=== PATIENT | female | born 1980 | race Caucasian/White ===

== ENCOUNTER 2024-01-17 08:51 | Emergency (ER) | payer OTHER, SELFPAY ==
[2024-01-17 08:55] VITALS: BP 140/93
--- NOTE | 2024-01-17 09:48 | ED.GENMED ---
History of Present Illness
General
Chief Complaint: Ear Problem
Time Seen by Provider: 01/17/24 09:18
History of Present Illness
History of Present Illness:
43-year-old female without significant past medical history presenting to the emergency department for persistent right ear pain. Patient reports for the past month she has been having right ear pain, was placed on Levaquin by her primary care
doctor. She then had some dental work, on clindamycin, however never ended up taking the clindamycin. She went back on Levaquin and just finished the antibiotic yesterday. She notes persistent right ear discomfort, now radiating to the back of
her ear, neck, and up to her eye. Denies fever. Denies visual changes or auditory changes. Denies any drainage from the ear. Denies additional acute medical complaints.
Past History
Past History
ED Past Medical History: Other (Hypertension, hysterectomy)
Social History
Tobacco: Non-smoker
Alcohol: None
Family History
Family History: Other (Hypertension, diabetes, kidney cancer)
Phy Exam
Physical Exam
Physical Exam:
General: Well-appearing, no clinical signs of dehydration, nontoxic and in no acute distress
HEENT: protecting airway, mild fluid behind the right TM. No significant erythema to the canal. Generalized tenderness to the right ear and mild tenderness to the right tragus and mastoid. No inflammation. Pupils equal and reactive bilaterally,
extraocular movements intact.
Neck: appears supple
CV: Normal heart rate
Resp: No accessory muscle use, no increased work of breathing
Abd: Soft and non-distended, no tenderness to palpation, normal bowel sounds
Extremities: No deformities, no swelling
Neuro: alert, no focal neurologic deficit
: deferred
Rectal: deferred
Psych: Normal affect
Skin: Intact
Course
Orders/Labs/Results
Orders:
Orders
01/17/24 09:36
CT Temporal-iac W/ Iv Contrast Urgent
Comment:
Reason For Exam: recurrent R-ear pain, R-mastoid pain
01/17/24 10:05
Complete Blood Count/With Diff Urgent
Comprehensive Metabolic Panel Urgent
01/17/24 10:40
CT Head W/o Iv Contrast Urgent
Comment:
Reason For Exam: foggiesss, right head pain
Abnormal Lab Results
01/17/24
10:05
Alkaline Phosphatase 37 L U/L
(38-126)
01/17/24 10:05
01/17/24 10:05
Vital Signs
Initial and Last Documented VS:
Initial Vital Signs
Temp Pulse Resp BP Pulse Ox
99.3 F 78 18 140/93 100
01/17/24 08:55 01/17/24 08:55 01/17/24 08:55 01/17/24 08:55 01/17/24 08:55
Last Documented Vital Signs
Temp Pulse Resp BP Pulse Ox
99.3 F 107 16 133/78 100
01/17/24 08:55 01/17/24 09:52 01/17/24 09:52 01/17/24 09:52 01/17/24 09:52
MDM/Problems Addressed
MDM/Problems Addressed:
43-year-old female presenting for persistent right ear discomfort. Vital signs are normal.
On exam patient is well-appearing, nontoxic. Examination of the right ear, no significant signs of infection to the right ear, mild amount of fluid, however does have discomfort to the external ear and mastoid. Given more than a month of symptoms
with now external discomfort, mastoiditis is a consideration. For this reason will obtain laboratory analysis and CT imaging.
12:00-patient CT is negative for acute process. Given persistence of symptoms, will start patient on an eardrop. Patient is also requesting an oral antibiotic, feel low utility, however given persistent symptoms, agreeable to trying given that
Levaquin is not first choice of antibiotic for this type of infection. Will start patient on cefdinir. Advised continued outpatient follow-up. Return precautions discussed and patient verbalized understanding
*Critical Care Note
Total Time (30-74mins, 75-104mins- exclusive of procedures): Not Applicable
ED Attending Note
-
Portions of this chart may have been created with voice recognition software.� Occasional wrong word or��sound alike� substitutions may have occurred due to the inherent limitations of voice recognition software.
Discharge Plan
Departure
Prescriptions:
No Action
amlodipine 2.5 MG tablet
2.5 mg PO DAILY
dextroamphetamine-amphetamine [Adderall XR] 30 MG capsule,extended release 24hr
30 mg PO Daily
tramadol 50 MG tablet
50 mg PO Q6HPRN PRN (Reason: headache) Qty: 10 0RF
Referrals:
Lida Viera DO [Family Provider] -
Interventions
Interventions:
*Risk Screen - Suicide Last Done: 01/17/24 08:55
*General Assessment Last Done: 01/17/24 08:55
*Neglect/Abuse Screening Last Done: 01/17/24 08:55
ED- Fall Risk Assessment Last Done: 01/17/24 09:51
*ED COVID-19 Vaccine History Last Done: 01/17/24 08:55
Discharge Date and Time
Print Language: YAKUT
[2024-01-17 09:51] VITALS: BMI 28.2
[2024-01-17 09:52] VITALS: BP 133/78
[2024-01-17 10:16] LABS: % Basophils 0.7 % (0-2); % Eosinophils 0.1 % (0-6); % Immature Granulocytes 0.3 % (0-0.5); % Lymphocytes 28.1 % (20.5-51.1); % Monocytes 4.8 % (1.7-9.3); Absolute Basophils 0.1 10^3/uL (0-0.2); Absolute Monocytes 0.3 10^3/uL (0.1-0.6); Absolute Neutrophils 4.7 10^3/uL (1.4-6.5); Hematocrit 40.9 % (37.0-47.0); Hemoglobin 14.6 g/dL (12.0-16.0); Mean Corp Hgb Conc. 35.7 g/dL (33.0-37.0); Mean Corpuscular Hgb 30.1 pg (27.0-31.0); Mean Corpuscular Volume 84.3 fL (81.0-99.0); Mean Platelet Volume 9.6 fL (7.4-10.4); Nucleated Red Blood Cells % 0 %; Platelet Count 242 10^3/uL (130-400); Red Blood Cell Count 4.85 10^6/uL (4.20-5.40); Red Cell Dist. Width 12.5 % (11.5-14.5); White Blood Cell Count 7.1 10^3/uL (4.8-10.8)
[2024-01-17 10:31] LABS: ALT (SGPT) 18 U/L (0-35); AST (SGOT) 20 U/L (14-36); Albumin 4.6 g/dl (3.5-5.0); Alkaline Phosphatase 37 U/L (38-126); Blood Urea Nitrogen 13 mg/dl (7-17); Calcium 9.3 mg/dl (8.4-10.2); Carbon Dioxide 24 mmol/L (22-30); Chloride 104 mmol/L (98-107); Estimated Creatinine Clearance 103 ml/min; Potassium 4.5 mmol/L (3.5-5.1); Sodium 137 mmol/L (135-145); Total Protein 7.3 g/dl (6.3-8.2); eGFR > 60.00
[2024-01-17 10:57] LABS: Glucose 91 mg/dl (70-99); Total Bilirubin 0.5 mg/dl (0.2-1.3)
[2024-01-17 12:15] VITALS: BP 127/79
--- NOTE | 2024-01-17 12:15 | EDRN ---
Reviewed discharge instructions with patient. Verbalized understanding. Ambulated with steady gait to the lobby.
== END 2024-01-17 12:20 | disposition home or self-care (01) ==
LOC: EMR 08:51
PROVIDERS: EMERGENCY PHYSICIAN Student in an Organized Health Care Education/Training Program; FAMILY PHYSICIAN Family Medicine
DX: H60.91 Unspecified otitis externa, right ear (principal)
CPT/HCPCS: 99285; 70450; 70481; 80053; 85025; Q9967